=== PATIENT | male | born 1995 | race Caucasian/White ===

== ENCOUNTER 2019-04-19 19:53 | Emergency (ER) | payer OTHER ==
[~2019-04-19] VITALS: Ht 177.8 cm; Wt 59.0 kg
--- NOTE | 2019-04-19 20:00 | NUR ---
PT PRESENTS W/C/O FACIAL NUMBNESS X 1 WEEK. EQUAL BILAT STRENGTH. +FACIAL SYMMETRY NOTED. NO FACIAL DROOPING. PT AAOX4, GCS 15
[2019-04-19 20:03] VITALS: BP 124/85
--- NOTE | 2019-04-19 20:05 | NUR ---
TO LOBBY A/W BED, AMBULATORY
--- NOTE | 2019-04-19 20:31 | NUR ---
PT TAKEN TO BED 5
--- NOTE | 2019-04-19 20:33 | NUR ---
Dr. Braden examining patient.
--- NOTE | 2019-04-19 20:41 | NUR ---
PT TAKEN TO CT
--- NOTE | 2019-04-19 20:48 | NUR ---
PT RETURN FROM CT
--- NOTE | 2019-04-19 21:55 | NUR ---
REPORT CALLED TO GONSALO GUAMAN RN.
[2019-04-19 22:17] LABS: BASOPHILS % (AUTO) 0.3 % (0.0-2.0); EOSINOPHILS # (AUTO) 0.2 K/uL (0-0.4); EOSINOPHILS % (AUTO) 2.4 % (0.0-4.0); HEMOGLOBIN 15.5 g/dL (12.0-18.0); LYMPHOCYTES # (AUTO) 2.4 K/uL (2.0-11.5); MEAN CORPUSCULAR HEMOGLOBIN 31 pg (27-31); MEAN CORPUSCULAR HGB CONC 34 g/dL (33-37); MEAN CORPUSCULAR VOLUME 93.6 fL (80-94); MONOCYTES # (AUTO) 0.6 K/uL (0.8-1.0); MONOCYTES % (AUTO) 9.1 % (1.7-9.3); NEUTROPHILS # (AUTO) 3.6 K/uL (1.8-7.7); NEUTROPHILS % (AUTO) 53.2 % (42.2-75.2); PLATELET COUNT (AUTO) 239 K/uL (140-450); RED BLOOD CELL COUNT(AUTO) 4.92 MIL/uL (4.20-6.10); RED CELL DISTRIBUTION WIDTH 13.2 % (11.6-13.7); WHITE BLOOD COUNT (AUTO) 6.8 K/uL (4.8-10.8)
[2019-04-19 22:27] LABS: ANION GAP 15.5 (8-16); CARBON DIOXIDE 25.8 mmol/L (21-32); CREATININE 0.8 mg/dL (0.7-1.3); POTASSIUM 3.3 mmol/L (3.5-5.1)
[2019-04-19 22:37] LABS: PROTHROMBIN TIME 10.1 secs (10.8-13.4)
--- NOTE | 2019-04-19 22:46 | NUR ---
[facility] TRANSPORT AT BEDSIDE
--- NOTE | 2019-04-19 22:53 | NUR ---
[facility] HERE AT THIS TIME TO [employer]ES [employer] A[employer]LYST PT
[2019-04-19 22:54] VITALS: BP 123/89
--- NOTE | 2019-04-19 22:55 | NUR ---
Patient to be transferred to [facility]. Is being transferred due to HIGHER LEVEL OF CARE. Receiving facility has accepting physician and available space. ER physician has signed transfer form. Patient or responsible republican has agreed to transfer and signed form. Patient belongings inventoried and will be sent with patient. Copy of nursing notes, lab reports, EKG, Physicians Orders and X-rays to be sent with patient. Report called to ANDRE VEGA at receiving facility. [facility] ambulance service has been called for transfer.
--- NOTE | 2019-04-19 22:56 | NUR ---
PT TAKEN BY [facility] TRANSPORT TO [facility] ER
== END 2019-04-19 22:56 | disposition short-term general hospital (02) ==
LOC: MED 19:53
DX: G93.89 Other specified disorders of brain (principal); R20.2 Paresthesia of skin; Z98.890 Other specified postprocedural states
CPT/HCPCS: 36415; 70450; 80048; 85025; 85610; 85730; 99285

== ENCOUNTER 2022-08-30 18:22 | Emergency (ER) | payer OTHER ==
--- NOTE | 2022-08-30 19:34 | NUR ---
CALLEDX1. NO SHOW
--- NOTE | 2022-08-30 19:40 | NUR ---
CALLED [phone]: WRONG NUMBER.
--- NOTE | 2022-08-30 19:50 | NUR ---
PATIENT LEFT WITHOUT BEING SEEN BY DR. Palomares. NO FURTHER CARE PROVIDED FOR PATIENT. Addendum: 08/30/22 at 1950 by ROBI Patient left prior triage.
== END 2022-08-30 19:34 | disposition left against medical advice (07) ==
LOC: MED 18:22
DX: R53.1 Weakness (principal); Z53.21 Procedure and treatment not carried out due to patient leaving prior to being seen by health care provider